=== PATIENT | female | born 1995 | race Two or more races ===

== ENCOUNTER 2016-12-05 04:23 | Emergency (ER) | payer MEDICAID ==
--- NOTE | 2016-12-05 04:33 | ER Document Report ---
ED General - General Stated Complaint: SUICIDAL IDEATIONS Time Seen by Provider: 12/05/16 04:28 Notes: Patient is a 21-year-old female who presents with complaint of suicidal ideations. Patient did have alcohol drinks tonight. She apparently became very upset and tried to cut her left wrist. She will not tell me why she did this. All she will tell me that she has a lot of things going on her life that have made her very depressed. She has hurt herself in the past. The friend called the ambulance on her behalf to bring her here. Patient denies any medical allergies. She denies being on any medications. She refuses to give me any further information at this time. Past Medical History - Social History Smoking Status: Unknown if Ever Smoked Frequency of alcohol use: Occasional Drug Abuse: None Family History: Reviewed & Not Pertinent Review of Systems - Review of Systems Notes: My Normal Review Basic REVIEW OF SYSTEMS: CONSTITUTIONAL : Denies fever, chills, or sweats. Denies recent illness. RESPIRATORY: Denies cough, cold, or chest congestion. Denies shortness of breath, difficulty breathing, or wheezing. GASTROINTESTINAL: Denies abdominal pain. Denies nausea, vomiting, or diarrhea. Denies constipation. Last BM: MUSCULOSKELETAL: Denies neck or back pain or joint pain or swelling. SKIN: Denies rash or skin lesions. NEUROLOGICAL: Denies altered mental status or loss of consciousness. Denies headache. Denies weakness or paralysis or loss of use of either side. Denies problems with gait or speech. Denies sensory or motor loss. PSYCHIATRIC: Depression, self cutting. ALL OTHER SYSTEMS REVIEWED AND NEGATIVE. Physical Exam - Vital signs Vitals: Temp Pulse Resp BP Pulse Ox 97.7 F 87 20 130/87 H 100 12/05/16 04:43 12/05/16 04:43 12/05/16 04:43 12/05/16 04:43 12/05/16 04:43 - Notes Notes: General Appearance: Well nourished, alert, Patient has her fists clenched and seems very agitated. She is tearful. Vitals: reviewed, See vital signs table. Head: no swelling or tenderness to the head Eyes: PERRL, EOMI, Conjuctiva clear Mouth: No decreasd moisture Neck: Supple, no neck tenderness Lungs: No wheezing, No rales, No rhonci, No accessory muscle use, good air exchange bilaterally. Heart: Normal rate, Regular rythm, No murmur, no rub Abdomen: Normal BS, soft, No rigidity, No abdominal tenderness, No guarding, no rebound, no abdominal masses, no organomegaly Extremities: strength 5/5 in all extremities, good pulses in all extremities, no swelling or tenderness in the extremities, no edema. Skin: warm, dry, appropriate color, no rash Neuro: speech clear, oriented x 3, cranial nerves II through XII are intact. Patient moves all extremities on her own. She refuses to answer most questions. Course - Vital Signs Vital signs: Temp Pulse Resp BP Pulse Ox 97.9 F 87 20 130/87 H 100 12/05/16 04:57 12/05/16 04:43 12/05/16 04:43 12/05/16 04:43 12/05/16 04:43 - Laboratory Result Diagrams: 12/05/16 04:42 12/05/16 04:42 Laboratory results interpreted by me: 12/05/16 12/05/16 04:35 04:42 Sodium 145.8 H Chloride 108 H BUN 4 L Urine Blood SMALL H Ur Leukocyte Esterase MODERATE H Salicylates < 1.0 L Acetaminophen < 10 L - EKG Interpretation by Me Additional EKG results interpreted by me: 12/05/16 05:13 EKG is reviewed and interpreted by me. EKG shows normal sinus rhythm with a rate of [address] segment elevation or depression. No ischemic T-wave inversions. NV interval, QRS duration, QTc intervals are within normal range. No old EKG available for comparison. - Transfer of Care Notes: 12/05/16 06:26 Patient did cut her wrist. Cut is superficial and does not require sutures. Patient is on IVC paperwork. UA shows some evidence of UTI so I will place her on Cipro. Patient is medically stable for psychiatric evaluation and placement. Discharge - Discharge Clinical Impression: Suicidal ideation, Abrasion UTI (urinary tract infection) Qualifiers: Urinary tract infection type: site unspecified Hematuria presence: without hematuria Qualified Code(s): N39.0 - Urinary tract infection, site not specified Condition: Stable Disposition: PSYCH HOSP/UNIT Additional Instructions: URINARY TRACT INFECTION: Your evaluation indicates that you have a urinary tract infection. This is due to germs growing in the bladder. This is a common problem. This infection usually responds quickly to antibiotics. Your antibiotic should be taken exactly as prescribed. Drink plenty of fluids -- three to four quarts a day. Occasionally, a bladder anesthetic will be prescribed to help stop the feeling of urgency until the antibiotic has a chance to clear the infection. This may cause your urine to be dark orange. Certain urine infections require a culture. If the doctor obtained a culture, the results will be back in two days. You should call to see if a change in treatment is needed. A repeat urinalysis after you finish treatment is often recommended. The physician will let you know if further testing is required. Call the doctor if you develop fever, chills, flank pain, inability to urinate, or blood in the urine. ANTIBIOTIC THERAPY: You have been given an antibiotic prescription. It's important that you take all the medication, unless instructed otherwise by your physician. Failure to complete the entire course can result in relapse of your condition. Common side effects of antibiotics include nausea, intestinal cramping, or diarrhea. Women may develop vaginal yeast infections, and babies can get yeast (thrush) in the mouth following the use of antibiotics. Contact your physician if you develop significant side effects from this medication. Allergy to this antibiotic can result in hives, wheezing, faintness, or itching. If symptoms of allergy occur, stop the medication and call the doctor. CIPROFLOXACIN: You have been given an antibacterial agent, ciprofloxacin (Cipro). This medicine is not related to the penicillins, sulfas, cephalosporins, or tetracyclines. It is often given to patients who are allergic to these drugs. It has been chosen for you either because other drugs are not appropriate, or because of the nature of your problem. Cipro should not be taken with antacids, as these can decrease its effectiveness. It can be taken without regard to meals. CIPRO SHOULD NOT BE TAKEN BY CHILDREN, NURSING WOMEN, OR WOMEN. Although Cipro is usually well-tolerated, common side effects can include nausea and diarrhea. Contact your doctor if you experience any unusual symptoms while on this medication, such as joint pain or swelling, shortness of breath, wheezing, faintness, or hives. FOLLOW-UP CARE: If you have been referred to a physician for follow-up care, call the physician s office for an appointment as you were instructed or within the next two days. If you experience worsening or a significant change in your symptoms, notify the physician immediately or return to the Emergency Department at any time for re-evaluation. Please return to the ER if you have fevers, vomiting worsening depression, or any thoughts of suicide. Please do not drink large amounts of alcohol. Prescriptions: Ciprofloxacin HCl [Cipro 500 mg Tablet] 500 mg PO BID #6 tablet
[2016-12-05 04:58] LABS: ABSOLUTE EOSINOPHILS # (AUTO) 0.1 10^3/uL (0.0-0.6); ABSOLUTE LYMPHOCYTES (AUTO) 2.4 10^3/uL (0.5-4.7); ABSOLUTE MONOCYTES (AUTO) 0.6 10^3/uL (0.1-1.4); ABSOLUTE NEUT (AUTO) 4.6 10^3/uL (1.7-8.2); BASOPHILS % (AUTO) 0.4 % (0-2); EOSINOPHILS % (AUTO) 1.2 % (0-6); HEMATOCRIT 41.9 % (36.0-47.0); HGB HCT DIFFERENCE 0.1; LYMPHOCYTES % (AUTO) 31.3 % (13-45); MEAN CORPUSCULAR HEMOGLOBIN 29.5 pg (27.0-33.4); MEAN CORPUSCULAR HGB CONC 33.3 g/dL (32.0-36.0); MEAN CORPUSCULAR VOLUME 89 fl (80-97); MONOCYTES % (AUTO) 7.2 % (3-13); RED BLOOD COUNT 4.73 10^6/uL (3.72-5.28); RED CELL DISTRIBUTION WIDTH 13.5 % (11.5-14.0); SEGMENTED NEUTROPHILS % (AUTO) 59.9 % (42-78); WHITE BLOOD COUNT 7.7 10^3/uL (4.0-10.5)
[2016-12-05 05:10] LABS: APPEARANCE,URINE SLIGHTLY-CLOUDY; BILIRUBIN,URINE NEGATIVE (NEGATIVE); GLUCOSE, URINE NEGATIVE (NEGATIVE); KETONES,URINE NEGATIVE (NEGATIVE); LEUKOCYTE ESTERASE,URINE MODERATE (NEGATIVE); NITRITE,URINE NEGATIVE (NEGATIVE); PROTEIN,URINE NEGATIVE (NEGATIVE); URINE SPECIFIC GRAVITY 1.003; UROBILINOGEN,URINE NEGATIVE mg/dL (<2.0)
[2016-12-05 05:15] LABS: ALANINE AMINOTRANSFERASE 31 U/L (9-52); ALBUMIN 4.3 g/dL (3.5-5.0); ALCOHOL 217 mg/dL (NONE DETECTED); ALKALINE PHOSPHATASE 62 U/L (38-126); ANION GAP 14 (5-19); ASPARTATE AMINO TRANSFERASE 22 U/L (14-36); BILIRUBIN,DIRECT 0.3 mg/dL (0.0-0.4); BILIRUBIN,TOTAL 0.4 mg/dL (0.2-1.3); BLOOD UREA NITROGEN 4 mg/dL (7-20); CALCIUM 8.8 mg/dL (8.4-10.2); CARBON DIOXIDE 24 mmol/L (22-30); CHLORIDE 108 mmol/L (98-107); CREATININE RESULT 0.62 mg/dL (0.52-1.25); GLUCOSE 104 mg/dL (75-110); POTASSIUM 3.7 mmol/L (3.6-5.0); SODIUM 145.8 mmol/L (137-145); TOTAL PROTEIN 7.4 g/dL (6.3-8.2)
[2016-12-05 05:24] LABS: URINE BARBITURATES SCREEN NEGATIVE; URINE METHADONE SCREEN NEGATIVE; URINE OPIATES LOW NEGATIVE; URINE PHENCYCLIDINE SCREEN NEGATIVE
--- NOTE | 2016-12-05 07:16 | EKG REPORT ---
SEVERITY:- NORMAL ECG - SINUS RHYTHM : Confirmed by: Tara Camarillo 05-Dec-2016 07:16:05
--- NOTE | 2016-12-05 09:15 | ER Document Report ---
Doctor's Note Notes: 12/05/16 09:15 Lab work vital signs have been reviewed. At this time patient is currently stable with no overnight events requiring no intervention at this time. Patient stable for transfer or other disposition
[2016-12-05] MEDS ORDERED: CIPROFLOXACIN HCL 500 MG TABLET PO SCH (10:00)
[2016-12-05 15:28] VITALS: BP 124/79
--- NOTE | 2016-12-05 15:37 | ER Document Report ---
ED Psych Disorder / Suicide - General Mode of Arrival: Medic Information source: Patient, Friend TRAVEL OUTSIDE OF THE [place] IN LAST 30 DAYS: No - HPI Patient complains to provider of: Suicidal ideation, Self injury - Patient has superficial cut on inner wrist Onset: Just prior to arrival Onset was: Cannot confirm Quality of pain: No pain Severity: Mild Pain Level: Denies Suicide Risk Factors: Age <19, Bipolar, No spouse Suicide Attempt Method: Stabbing/Cutting - superficial Injury to: Wrist - superficial Normal mood: Yes Associated symptoms: Normal affect, Normal mood <CHAR HERNANDEZ - Last Filed: 12/05/16 15:24> <CARLA WEN - Last Filed: 12/05/16 16:28> - General Chief Complaint: Suicidal Ideation Stated Complaint: SUICIDAL IDEATIONS Time Seen by Provider: 12/05/16 04:28 - HPI Notes: Patient is a 21-year-old female who presents with complaint of suicidal ideations. Patient did have alcohol drinks tonight. She apparently became very upset and tried to cut her left wrist. She will not tell me why she did this. All she will tell me that she has a lot of things going on her life that have made her very depressed. She has hurt herself in the past. Patient states that she is originally from [place]. She states she moved here with her mother however her mother has gone back to [place]. Patient states she stayed here to allow the biological father of her child visitation in joint custody. Patient states that she currently does not work or go to school. She states that she lives with a friend and other of her child used to pay the bills however he lost his job a week and half ago. She states that she does not feel she drink that much last night. She continued disclosed that she has hurt herself in the past when she was 16 years old; overdose on pills. She continued to state that she is willing to go to outpatient services but is concerned about transportation. Clinician spoke with patient's friend, Herbert, who states he is known the patient for a few months now. He continued disclosed that the patient will never be alone because there is always somebody at the house. He continued disclosed the patient will not have any access to weapons or any medication. He continued to state that he wants sure the patient follows up with outpatient services to include transportation assistance. 291.9 (F10.99) unspecified alcohol related disorder 311 (F32.9) unspecified depressive disorder R/O 296.80 (F31.9) unspecified bipolar and related disorder 10\\plan: Patient is recommended for rescind of IVC and considered psychiatrically clear for discharge. Patient no longer meets IVC criteria per [place] GS 122C. Patient is no longer under the influence of alcohol. patient states she has been stressed because of money when her significant other lost his job approximately 1-1/2 weeks ago. Patient continued disclosed that she is willing to go to out patient services; recommended to follow-up with [facility] on 12/06/2016 at 8 AM. Patient's friend Herbert agrees to be part of patient's discharge plan to ensure patient has no access to weapons or medications and follows up with mental health outpatient services. It was consulted on the care and management of this patient; attending physician is in agreement with recommendations and disposition. (CHAR HERNANDEZ) - Related Data Allergies/Adverse Reactions: No Known Allergies Allergy (Unverified 12/05/16 10:44) Past Medical History - Social History Smoking Status: Unknown if Ever Smoked Frequency of alcohol use: Occasional Drug Abuse: None Family History: Reviewed & Not Pertinent Patient has suicidal ideation: Yes Patient has homicidal ideation: No - Past Medical History Cardiac Medical History: Denies: Hx Atrial Fibrillation, Hx Congestive Heart Failure, Hx Heart Attack Pulmonary Medical History: Denies: Hx Asthma, Hx COPD Endocrine Medical History: Denies: Hx Diabetes Mellitus Type 1, Hx Diabetes Mellitus Type 2 Renal/ Medical History: Denies: Hx End Stage Renal Disease, Hx Peritoneal Dialysis GI Medical History: Denies: Hx Hiatal Hernia Musculoskeltal Medical History: Denies Hx Arthritis Psychiatric Medical History: Reports: Hx Depression Surgical Hx: Negative <CHAR HERNANDEZ - Last Filed: 12/05/16 15:24> Course - Laboratory Result Diagrams: 12/05/16 04:42 12/05/16 04:42 <CHAR HERNANDEZ - Last Filed: 12/05/16 15:24> - Laboratory Result Diagrams: 12/05/16 04:42 12/05/16 04:42 <CARLA WEN - Last Filed: 12/05/16 16:28> - Re-evaluation Re-evalutation: 06/29/17 16:27 I agree with our psychiatric assessment and plan. Patient does have good support for home. Patient agrees with plan patient will be discharged home ( CARLA WEN) - Vital Signs Vital signs: Temp Pulse Resp BP Pulse Ox 98.1 F 80 16 124/79 97 12/05/16 15:24 12/05/16 15:24 12/05/16 15:24 12/05/16 15:24 12/05/16 15:24 - Laboratory Laboratory results interpreted by me: 12/05/16 12/05/16 04:35 04:42 Sodium 145.8 H Chloride 108 H BUN 4 L Urine Blood SMALL H Ur Leukocyte Esterase MODERATE H Salicylates < 1.0 L Acetaminophen < 10 L Discharge <CHAR HERNANDEZ - Last Filed: 12/05/16 15:24> <CARLA WEN - Last Filed: 12/05/16 16:28> - Discharge Clinical Impression: Suicidal ideation, Abrasion UTI (urinary tract infection) Qualifiers: Urinary tract infection type: site unspecified Hematuria presence: without hematuria Qualified Code(s): N39.0 - Urinary tract infection, site not specified Condition: Stable Disposition: HOME, SELF-CARE Additional Instructions: URINARY TRACT INFECTION: Your evaluation indicates that you have a urinary tract infection. This is due to germs growing in the bladder. This is a common problem. This infection usually responds quickly to antibiotics. Your antibiotic should be taken exactly as prescribed. Drink plenty of fluids -- three to four quarts a day. Occasionally, a bladder anesthetic will be prescribed to help stop the feeling of urgency until the antibiotic has a chance to clear the infection. This may cause your urine to be dark orange. Certain urine infections require a culture. If the doctor obtained a culture, the results will be back in two days. You should call to see if a change in treatment is needed. A repeat urinalysis after you finish treatment is often recommended. The physician will let you know if further testing is required. Call the doctor if you develop fever, chills, flank pain, inability to urinate, or blood in the urine. ANTIBIOTIC THERAPY: You have been given an antibiotic prescription. It's important that you take all the medication, unless instructed otherwise by your physician. Failure to complete the entire course can result in relapse of your condition. Common side effects of antibiotics include nausea, intestinal cramping, or diarrhea. Women may develop vaginal yeast infections, and babies can get yeast (thrush) in the mouth following the use of antibiotics. Contact your physician if you develop significant side effects from this medication. Allergy to this antibiotic can result in hives, wheezing, faintness, or itching. If symptoms of allergy occur, stop the medication and call the doctor. CIPROFLOXACIN: You have been given an antibacterial agent, ciprofloxacin (Cipro). This medicine is not related to the penicillins, sulfas, cephalosporins, or tetracyclines. It is often given to patients who are allergic to these drugs. It has been chosen for you either because other drugs are not appropriate, or because of the nature of your problem. Cipro should not be taken with antacids, as these can decrease its effectiveness. It can be taken without regard to meals. CIPRO SHOULD NOT BE TAKEN BY CHILDREN, NURSING WOMEN, OR WOMEN. Although Cipro is usually well-tolerated, common side effects can include nausea and diarrhea. Contact your doctor if you experience any unusual symptoms while on this medication, such as joint pain or swelling, shortness of breath, wheezing, faintness, or hives. Acute Alcohol Intoxication Your evaluation revealed very high levels of alcohol. You can from drinking a large amount of alcohol rapidly! Further, there's the risk of falls , traffic accidents, and fights. A high portion (about 50 percent) of the serious injuries seen in hospital emergency rooms are caused by alcohol. Alcohol overdosage is usually due to an underlying emotional or psychiatric problem. You may benefit from counselling. If "binge" drinking is an ongoing problem for you, or if you drink ANY AMOUNT of alcohol EVERY day, you most likely have a tendency to alcoholism. You should avoid alcohol totally. We can refer you for treatment. Persons with alcohol problems are often also prone to other addictions -- you should discuss any use of medications or drugs with the doctor. You should be watched at home for the next several hours by someone who has not been drinking. Get extra fluids for the next 24 hours. Call the doctor if there is repeated vomiting, increasing headache, decreasing level of alertness, or any other worsening. FOLLOW-UP CARE: If you have been referred to a physician for follow-up care, call the physician s office for an appointment as you were instructed or within the next two days. Please follow-up with [facility] 12/06/2016 at 8 AM for your mental health services. If you experience worsening or a significant change in your symptoms, notify the physician immediately or return to the Emergency Department at any time for re-evaluation. Please return to the ER if you have fevers, vomiting worsening depression, or any thoughts of suicide. Please do not drink large amounts of alcohol. Prescriptions: Ciprofloxacin HCl [Cipro 500 mg Tablet] 500 mg PO BID #6 tablet Referrals: [facility] [Outside] - 12/06/16 8:00 am
== END 2016-12-05 16:45 | disposition home or self-care (01) ==
LOC: ER 04:23
DX: S60.812A Abrasion of left wrist, initial encounter (principal); X78.8XXA Intentional self-harm by other sharp object, initial encounter; F31.9 Bipolar disorder, unspecified; F10.99 Alcohol use, unspecified with unspecified alcohol-induced disorder; N39.0 Urinary tract infection, site not specified
CPT/HCPCS: 93005; 99285; 36415; 80307 ×4; 84703; 85025; 80053; 81001; 93010; J3490